=== PATIENT | female | born 1990 | race Caucasian/White ===

== ENCOUNTER 2017-11-19 11:27 | Emergency (ER) | payer OTHER ==
[~2017-11-19] VITALS: Ht 172.7 cm; Wt 95.4 kg
[2017-11-19 11:31] VITALS: BP 128/78
[2017-11-19] MEDS ORDERED: TETanus/Pertussis (Acell)/Diphther VAC/PF (Tdap-Adult) 0.5ml syringe IM ONE (12:15)
[2017-11-19] MEDS ORDERED: LIDOcaine 1% (10mg/ml)w/preservative injection 20ml MDV IJ ONE (12:15)
== END 2017-11-19 13:18 | disposition home or self-care (01) ==
LOC: ER 11:27
DX: S61.316A Laceration without foreign body of right little finger with damage to nail, initial encounter (principal); W45.8XXA Other foreign body or object entering through skin, initial encounter; Y93.89 Activity, other specified; Y92.69 Other specified industrial and construction area as the place of occurrence of the external cause; Y99.9 Unspecified external cause status
CPT/HCPCS: 12041; 90471; 90715; 99284; J2001

== ENCOUNTER 2020-02-22 09:29 | Emergency (ER) | payer OTHER, MEDICAID ==
[~2020-02-22] VITALS: Ht 172.7 cm; Wt 101.6 kg
[2020-02-22 09:32] VITALS: BP 96/66
== END 2020-02-22 10:42 | disposition home or self-care (01) ==
LOC: ER 09:30
DX: S46.911A Strain of unspecified muscle, fascia and tendon at shoulder and upper arm level, right arm, initial encounter (principal); Z87.891 Personal history of nicotine dependence; Z72.89 Other problems related to lifestyle; Z87.81 Personal history of (healed) traumatic fracture; V87.7XXA Person injured in collision between other specified motor vehicles (traffic), initial encounter; Y93.89 Activity, other specified; Y92.89 Other specified places as the place of occurrence of the external cause; Y99.8 Other external cause status
CPT/HCPCS: 99281

== ENCOUNTER 2021-11-23 14:17 | Emergency (ER) | payer MEDICAID ==
[~2021-11-23] VITALS: Ht 172.7 cm; Wt 110.0 kg
[2021-11-23 14:56] VITALS: BP 155/88
[2021-11-23] MEDS ORDERED: LIDOcaine 4% (40 mg/ml) topical solution 50ml TP ONE (16:00)
[2021-11-23] MEDS ORDERED: HYDROcodone/acetaminophen 10/325mg tab PO ONE (16:00)
[2021-11-23] MEDS ORDERED: HYDR-3972 PO (16:49)
[2021-11-23] MEDS ORDERED: AMOX-580 PO (16:49)
== END 2021-11-23 17:11 | disposition home or self-care (01) ==
LOC: ER 15:48
DX: K04.7 Periapical abscess without sinus (principal); K08.89 Other specified disorders of teeth and supporting structures; F17.200 Nicotine dependence, unspecified, uncomplicated; Z79.2 Long term (current) use of antibiotics; Z79.899 Other long term (current) drug therapy
CPT/HCPCS: 99283; A6449